=== PATIENT | female | born 1990 | race Two or more races ===

== ENCOUNTER 2023-12-16 20:43 | Emergency (ER) | payer OTHER ==
[~2023-12-16] VITALS: Ht 165.1 cm; Wt 63.5 kg
[2023-12-17 02:03] LABS: HEMATOCRIT 39.1 % (36.0-45.00); HEMOGLOBIN 13.2 g/dL (12.0-15.00); MEAN CELL VOLUME 94.4 fL (80.00-100.00); MEAN CORPUSCULAR HEMOGLOBIN 31.8 pg (27.00-32.0); MEAN CORPUSCULAR HGB CONC 33.7 g/dl (32.0-36.0); PLATELET COUNT 400 K/uL (150-450); RED BLOOD COUNT 4.14 M/uL (4.00-6.00); RED CELL DISTRIBUTION WIDTH 13.6 % (11.5-14.5)
[2023-12-17 02:36] LABS: BILIRUBIN TOTAL 0.77 mg/dL (0.3-1.2); CALCIUM 9.8 mg/dL (8.5-10.1); CREATININE SERUM 0.64 mg/dL (0.55-1.02); GFR 105.6; GLOBULINA 4.2 G/DL (2.4-3.5); POTASSIUM 4.1 mEq/L (3.5-5.1); TOTAL PROTEIN 8.2 gm/dL (6.4-8.2)
[2023-12-17 02:41] LABS: PH,URINE 5.5 (5.0-8.0); URINE APPEARANCE Cloudy; URINE BILIRRUBIN Negative (NEGATIVE); URINE BLOOD Negative; URINE COLOR Dark Yellow; URINE GLUCOSE Negative (NEGATIVE); URINE LEUKOCYTE Negative; URINE NITRATE Negative; URINE PROTEIN 30 (NEGATIVE)
[2023-12-17 02:42] LABS: URINE BACTERIA 3050.4 uL (0.0-1933); URINE EPITHELIAL CELLS 65.3 uL (0.0-38.8); URINE RBC 8.6 uL (0.0-20.8); URINE WBC 28.1 uL (0.0-23.2)
[2023-12-17] MEDS ORDERED: PROTONIX40 MG PO (05:58)
[2023-12-17] MEDS ORDERED: ZOFRAN8 MG PO (05:58)
[2023-12-17] MEDS ORDERED: PEPCID40 MG PO (05:58)
== END 2023-12-17 06:43 ==
LOC: ER 20:44 → EDBD 20:44 → ER 21:31
PROVIDERS: General Practice
DX: R10.13 Epigastric pain (principal); R10.9 Unspecified abdominal pain